=== PATIENT | male | born 1945 | race Caucasian/White ===

== ENCOUNTER 2018-03-14 01:52 | Emergency (ER) | payer MEDICARE, BC ==
--- NOTE | 2018-03-14 01:56 | ED Physician Documentation ---
Chest Pain - HISTORIAN Historian: patient - HPI Stated Complaint: chest pain x 30 min Chief Complaint: Chest Pain Onset: minutes (30) Timing: sudden onset Duration: constant Last known Well Date: 03/14/18 Last Known Well Time: 01:00 Last known Well Code/Unknown Code: Unknown Context: rest Severity: mild Quality: pressure Chest Pain Radiation: back ("feels like my back is broken" ) Chest Pain Signs/Symptoms: denies: nausea, vomiting, diaphoresis, cool extremities, dizziness, dyspnea, tachypnea, tachycardia, hypotension, palpitations, weakness Worsened By: other (laying flat ) Relieved By: sitting up Further Comments: yes (He states all of the suddent he had a mid chest to the back and feels as though his back is broken. Denies any recent injury. No shortness of air. He did not try any OTC meds or treatments at home.) - ROS CONST: other (cold and cough x 1 week ) - PAST HX CA risk factors: hypertension (not controlled per his report ), hyperlipidemia Lung disease: none Allergies/Adverse Reactions: Allergies Allergy/AdvReac Type Severity Reaction Status Date / Time Penicillins Allergy Intermediate Rash Verified 03/14/18 02:23 Home Medications: Ambulatory Orders Medication Instructions Recorded Lisinopril [Zestril] 10 mg PO D 03/14/18 Meloxicam 7.5 mg PO D 03/14/18 Omeprazole 20 mg PO D 03/14/18 Rosuvastatin Calcium 10 mg PO D 03/14/18 Tamsulosin HCl 0.4 mg PO D 03/14/18 - SOCIAL HX Smoking History: non-smoker Alcohol Use: none Drug Use: none - FAMILY HX Family HX: none - REVIEWED ASSESSMENTS Nursing Assessment Reviewed: Yes Vitals Reviewed: Yes Progress - Progress Progress: 0240: results discussed. He states sitting up his pain is less but he has had this cough x 2 weeks and the cough is productive. Plan discussed he and are agreeable DG 0300: He states he feels better and just wants to go home DG ED Results Lab/Radiology - Radiology Radiology Impressions: Portable chest Clinical history: Chest and back pain. Findings: Examination of the chest single portable AP view demonstrates lungs to be hypoventilated but clear. The cardiovascular and mediastinal silhouettes are within normal limits. Monitor leads superimpose the chest. Impression: 1. Hypoventilation. 2. No active disease. Electronically signed on Mar 14, 2018 2:29:10 AM MARINE MECHANIC by: Jus Tejeda Chest Pain Physical Exam - EXAM General Appearance: no acute distress, alert EENT: eye inspection normal, no signs of dehydration Neck: nml inspection Respiratory: no resp. distress, chest non-tender, nml breath sounds, other (no pain with palpation ) CVS: reg. rate & rhythm Abdomen: soft, no distension Skin: warm/dry, normal color Extremities: non-tender, normal range of motion, no evidence of injury, no edema Neuro: oriented X3 Discharge Clincal Impression: Bronchitis Referrals: Tiburcio Oneill DO [Primary Care Provider] - 2 Days Comments: 1. Azithromycin 250 mg take 1 by mouth daily x 4 (first dose in ER) 2. Medrol dose pack Start 03.15.2018 3. See PCP in 2-4 days 4. Return to ER for any concerns Disposition: 01 HOME, SELF-CARE Decision to Admit: NO Date of Decison to Admit: 03/14/18 Decision Time: 03:00
[2018-03-14] MEDS: ASPIRIN 81 MG CHEW TAB PO ONE (02:05)
[2018-03-14] MEDS: AZITHROMYCIN 250 MG TABLET PO ONE (02:45)
[2018-03-14] MEDS: KETOROLAC TROMETHAMINE 30 MG/1ML VIAL IVP ONE (02:50)
[2018-03-14] MEDS: 0.9 % SODIUM CHLORIDE 1,000 ML IV ONE ×2 (02:56)
[2018-03-14] MEDS: methylPREDNISolone SOD SUCC 125 MG/2 ML VIAL IVP ONE (02:58)
[2018-03-14 03:23] VITALS: BP 161/89
--- NOTE | 2018-03-14 05:57 | Diagnostic Imaging Report ---
AYAH BENEDICT [facility] [address] [facility] [address] [place], [place]. [address] Report Submission Date: Mar 14, 2018 2:29:10 AM SENIOR OCCUPATIONAL THERAPIST Patient Study Name: BONITA BAILON Date: Mar 14, 2018 2:11:33 AM SENIOR OCCUPATIONAL THERAPIST Modality Type: DX Gender: M Description: CHEST : 41 Institution: [facility] Physician: AYAH BENEDICT Portable chest Clinical history: Chest and back pain. Findings: Examination of the chest single portable AP view demonstrates lungs to be hypoventilated but clear. The cardiovascular and mediastinal silhouettes are within normal limits. Monitor leads superimpose the chest. Impression: 1. Hypoventilation. 2. No active disease. Electronically signed on Mar 14, 2018 2:29:10 AM SENIOR OCCUPATIONAL THERAPIST by: Jus BOWMAN
[2018-03-14 07:05] LABS: eGFR (Non-African) > 60
[2018-03-14 07:06] LABS: BASOPHILS % 0.4 (0.0-1.5); EOSINOPHILS % 2.8 % (0.0-6.8); MONOCYTES % 5.7 % (0.0-11.0); NEUTROPHILS # 8.4 # k/uL (1.4-7.7)
== END 2018-03-14 03:13 | disposition home or self-care (01) ==
LOC: ED 01:52
DX: J40 Bronchitis, not specified as acute or chronic (principal)
CPT/HCPCS: 36415; 71045; 80053; 82550; 84484; 85025; 93005; 96365; 96375; 99283; 99285; J1885; J2930; J7030; S1016